=== PATIENT | male | born 1990 | race Hispanic/Latino ===

== ENCOUNTER 2021-09-10 05:05 | Emergency (ER) | payer BC ==
[~2021-09-10] VITALS: Ht 175.3 cm; Wt 102.1 kg
[2021-09-10 05:41] VITALS: BP 128/77
[2021-09-10] MEDS ORDERED: DICL35CA3 PO (06:01)
[2021-09-10] MEDS ORDERED: CYCL10TA16 PO (06:01)
== END 2021-09-10 06:11 | disposition home or self-care (01) ==
LOC: EDH 05:05
DX: S16.1XXA Strain of muscle, fascia and tendon at neck level, initial encounter (principal); S40.011A Contusion of right shoulder, initial encounter; V47.5XXA Car driver injured in collision with fixed or stationary object in traffic accident, initial encounter; Y93.89 Activity, other specified; Y92.410 Unspecified street and highway as the place of occurrence of the external cause; Y99.8 Other external cause status